=== PATIENT | female | born 1970 | race Caucasian/White ===

== ENCOUNTER 2023-10-30 18:47 | Emergency (ER) | payer OTHER, MEDICAID ==
[~2023-10-30] VITALS: Ht 175.3 cm; Wt 104.5 kg
[2023-10-30] MEDS ORDERED: SULF-14 (19:15)
[2023-10-30 19:48] LABS: BASOPHILS # (AUTO) 0.1 X10'3 (0-0.2); BASOPHILS % (AUTO) 0.6 % (0-1); EOSINOPHILS # (AUTO) 0.4 X10'3 (0-0.9); EOSINOPHILS % (AUTO) 4.5 % (0-6); HEMATOCRIT 37.8 % (35.0-45.0); HEMOGLOBIN 12.3 g/dl (12.0-16.0); LYMPHOCYTES # (AUTO) 2.4 X10'3 (1.1-4.8); LYMPHOCYTES % (AUTO) 27.8 % (21-51); MEAN CORPUSCULAR HEMOGLOBIN 25.9 PG (27.0-31.0); MEAN CORPUSCULAR HGB CONC 32.5 g/dL (33.0-36.5); MEAN CORPUSCULAR VOLUME 79.8 FL (78-98); MEAN PLATELET VOLUME 7.6 FL (7.4-10.4); MONOCYTES # (AUTO) 0.5 X10'3 (0-0.9); MONOCYTES % (AUTO) 6.4 % (2-12); NEUTROPHILS # (AUTO) 5.2 X10'3 (1.8-7.7); NEUTROPHILS % (AUTO) 60.7 % (42-75); PLATELET COUNT 197 X10'3 (140-440); RED BLOOD COUNT 4.74 X10'6 (4.20-5.60); RED CELL DISTRIBUTION WIDTH 16.7 % (11.5-14.5); WHITE BLOOD COUNT 8.6 X10'3 (4.5-11.0)
[2023-10-30 20:07] LABS: ALBUMIN 3.3 G/DL (3.4-5.0); ANION GAP 10 (8-16); BLOOD UREA NITROGEN 14 MG/DL (7-18); BUN/CREATININE RATIO 16.5 (10.0-20.0); CALCIUM 9.3 MG/DL (8.5-10.1); CHLORIDE 106 MMOL/L (99-107); CREATININE 0.85 MG/DL (0.40-0.90); GLUCOSE 94 MG/DL (70-104); POTASSIUM 3.9 MMOL/L (3.5-5.1); PRO BRAIN NATRIURETIC PEPTIDE 50 PG/ML (0-125); SODIUM 142 MMOL/L (135-145); TOTAL CARBON DIOXIDE 25.6 MMOL/L (24-32); eCRCL 79 ML/MIN; eGFR 70 ML/MIN
[2023-10-31] MEDS: ondansetron 4mg rapidly disintigrating tab PO ONE
[2023-10-31] MEDS: furosemide 20MG tablet PO ONE (00:01)
[2023-10-31] MEDS ORDERED: CEPH-585 PO (00:02)
[2023-10-31] MEDS ORDERED: FURO-150 PO (00:02)
[2023-10-31] MEDS: sulfamethoxazole/trimethoprim DS (800/160mg) tablet PO ONE (00:02)
[2023-10-31] MEDS: cephalexin 250mg capsule PO ONE (00:23)
[2023-10-31 01:21] VITALS: BP 126/89; PULSE 78; RESP 18; TEMP 98.5; O2SAT 99
== END 2023-10-31 01:23 | disposition home or self-care (01) ==
LOC: ER 18:49
DX: R60.0 Localized edema (principal); F41.9 Anxiety disorder, unspecified
CPT/HCPCS: 36415; 80048; 83880; 85025; 99283; A6449